=== PATIENT | male | born 1965 | race Caucasian/White ===

== ENCOUNTER 2018-03-22 02:21 | Emergency (ER) | payer OTHER ==
[~2018-03-22] VITALS: Ht 165.1 cm; Wt 59.0 kg
[2018-03-22] MEDS ORDERED: TORADOL 10 MG T10 MG PO (02:53)
[2018-03-22] MEDS ORDERED: ACETAMINOPHEN-1 EAC1 PO (02:53)
[2018-03-22 03:22] VITALS: BP 130/77
== END 2018-03-22 03:35 | disposition home or self-care (01) ==
LOC: M.ERS 02:21
DX: S43.102A Unspecified dislocation of left acromioclavicular joint, initial encounter (principal); F17.210 Nicotine dependence, cigarettes, uncomplicated; Z88.0 Allergy status to penicillin; Z87.39 Personal history of other diseases of the musculoskeletal system and connective tissue; V29.40XA Motorcycle driver injured in collision with unspecified motor vehicles in traffic accident, initial encounter; Y93.89 Activity, other specified; Y92.89 Other specified places as the place of occurrence of the external cause; Y99.8 Other external cause status